=== PATIENT | female | born 1980 | race Caucasian/White ===

== ENCOUNTER 2020-05-04 09:00 | Outpatient (RCR) | payer BC ==
[~2020-05-04 09:00] MED LIST: AMOXICILLIN875 MG PO; MOTRIN 600600 MG/TAB PO; PERCOCET 325 MG1 TA2 PO; PRENATAL MVI
== END 2020-07-29 | disposition home or self-care (01) ==
LOC: WSC
DX: S83.411A Sprain of medial collateral ligament of right knee, initial encounter (principal)